=== PATIENT | female | born 1960 | race Caucasian/White ===

== ENCOUNTER 2016-07-11 14:37 | Emergency (ER) | payer BC ==
[2016-07-11 14:55] VITALS: BP 101/62
--- NOTE | 2016-07-11 15:13 | UC ---
Ear Complaint HPI - HPI Summary HPI Summary: Cough, ear pressure, nasal congestion and nasal drainage starting 5-6 days ago. Ear pressure is biggest concern. Denies fever, ear drainage, or trouble breathing. No hx of ENT surgery. - History of Current Complaint Chief Complaint: UCEar Stated Complaint: COUGH,BILATERAL EAR PAIN Time Seen by Provider: 07/11/16 14:56 Hx Obtained From: Patient Hx Last Menstrual Period: NONE ?: No Onset/Duration: Gradual Onset, Lasting Days Severity Initially: Mild Severity Currently: Moderate Associated Signs/Symptoms: Positive: Hearing Loss, URI Symptoms - Allergies/Home Medications Allergies/Adverse Reactions: Allergies Allergy/AdvReac Type Severity Reaction Status Date / Time Penicillins Allergy Rash Verified 07/11/16 14:55 Sulfa Antibiotics Allergy Rash Verified 07/11/16 14:55 Home Medications: Home Medications Acetaminophen-Phenylephrine 2 cap PO ONCE PRN 07/11/16 [History] PMH/Surg Hx/FS Hx/Imm Hx Endocrine History Of: Denies: Diabetes Cardiovascular History Of: Denies: Hypertension, Pacemaker/ICD GI/ History Of: Denies: Renal Disease - Surgical History Surgical History: Yes Surgery Procedure, Year, and Place: LUMPECTOMY - Rt BREAST. APPENDECTOMY - Family History Known Family History: Positive: Hypertension - Social History Alcohol Use: Occasionally Substance Use Type: None Smoking Status (MU): Never Smoked Tobacco Review of Systems Constitutional: Negative Skin: Negative Eyes: Negative ENT: Ear Ache, Nasal Discharge Respiratory: Cough Cardiovascular: Negative Gastrointestinal: Negative Genitourinary: Negative Motor: Negative Neurovascular: Negative Musculoskeletal: Negative Neurological: Negative Psychological: Negative All Other Systems Reviewed And Are Negative: Yes Physical Exam Triage Information Reviewed: Yes Appearance: Well-Appearing, No Pain Distress, Well-Nourished Vital Signs: Initial Vital Signs Temp 98.9 F 07/11/16 14:48 Pulse 79 07/11/16 14:48 Resp 14 07/11/16 14:48 BP 101/62 07/11/16 14:48 Pulse Ox 100 07/11/16 14:48 Vital Signs Reviewed: Yes Eye Exam: Normal Eyes: Positive: Conjunctiva Clear ENT: Positive: Hearing grossly normal, Nasal congestion, Nasal drainage, TMs normal. Negative: Tonsillar swelling, Tonsillar exudate Dental Exam: Normal Neck exam: Normal Neck: Positive: Supple, Nontender, No Lymphadenopathy Respiratory Exam: Normal Respiratory: Positive: Chest non-tender, Lungs clear, Normal breath sounds, No respiratory distress, No accessory muscle use Cardiovascular Exam: Normal Cardiovascular: Positive: RRR, No Murmur Musculoskeletal Exam: Normal Neurological Exam: Normal Psychological Exam: Normal Skin Exam: Normal Ear Complaint Course/Dx - Differential Dx/Diagnosis Provider Diagnoses: URI. bilat ear serous otitis Discharge - Discharge Plan Condition: Stable Disposition: HOME Patient Education Materials: Upper Respiratory Infection (ED), Serous Otitis Media (ED) Referrals: Yadi Somers MD [Primary Care Provider] - If Needed
== END 2016-07-11 15:14 | disposition home or self-care (01) ==
LOC: UCCORT 14:37
DX: J06.9 Acute upper respiratory infection, unspecified (principal); H65.93 Unspecified nonsuppurative otitis media, bilateral; Z88.0 Allergy status to penicillin; Z88.2 Allergy status to sulfonamides
CPT/HCPCS: 99211; G0463

== ENCOUNTER 2017-06-19 06:21 | Day surgery (SDC) | payer BC ==
[~2017-06-19 06:21] MED LIST: Buffered Lidocaine 0.9% SYRIN* 5 ML/SYR SYRINGE INTRADERM ONE; Famotidine IV* 10 MG/ML 2 ML (20 mg) IV ONE
[2017-06-19] MEDS ORDERED: Buffered Lidocaine 0.9% SYRIN* 5 ML/SYR SYRINGE ONE (06:35)
[2017-06-19] MEDS ORDERED: Famotidine IV* 10 MG/ML 2 ML (20 mg) ONE (06:35)
[2017-06-19] MEDS ORDERED: Bupivacaine 0.25% SDV* 30 ML ONE (07:05)
[2017-06-19] MEDS ORDERED: Lidocaine 1% MPF wEPI 200,000* 30 ML SDV ONE (07:06)
[2017-06-19] MEDS ORDERED: Bupivacaine 0.5% SDV PF* 10-30ML VIAL ONE (07:07)
[2017-06-19] MEDS ORDERED: fentaNYL* 50 MCG/ML 2 ML VIAL (100 MCG VIAL) ONE (07:29)
[2017-06-19] MEDS ORDERED: Midazolam* 1 MG/ML 5 ML VIAL (5 MG) ONE (07:29)
[2017-06-19] MEDS ORDERED: Propofol* 10 MG/ML 20 ML BTL IV PUSH ONE ×2 (07:46→07:58)
[2017-06-19] MEDS ORDERED: Lidocaine 2% PF * 5 ML VIAL ONE (07:46)
[2017-06-19] MEDS ORDERED: Ondansetron INJ* 2 MG/ML VIAL ONE (07:46)
[2017-06-19] MEDS ORDERED: Ketorolac INJ* 30 MG/ML 1 ML VIAL ONE (07:46)
[2017-06-19] MEDS ORDERED: Naloxone* 0.4 MG/ML 1 ML VIAL IV PRN (08:07)
[2017-06-19] MEDS ORDERED: Acetaminophen TAB* 325 MG PO PRN (08:07)
[2017-06-19 08:31] VITALS: BP 109/68
--- NOTE | 2017-06-24 04:05 | OP ---
DATE OF OPERATION: 06/19/17 - [facility] DATE OF : 64 SURGEON: Jp Dia MD PIANO MOVER: None. ANESTHESIOLOGIST: Dr. Thomas. ANESTHESIA: Local MAC. PRE-OP DIAGNOSIS: Right carpal tunnel syndrome. POST-OP DIAGNOSIS: Right carpal tunnel syndrome. OPERATIVE PROCEDURE: Right open carpal tunnel release. INDICATIONS: Celia has had progressive disease. We talked about risks and benefits, she wants to proceed with surgery. ESTIMATED BLOOD LOSS: 2 mL. COMPLICATIONS: None. FINDINGS: As expected. DESCRIPTION OF PROCEDURE: Celia was seen in the preoperative holding area. We came back to the operating room. The arm was prepped and draped in the usual fashion. A time-out was performed. The arm was exsanguinated with the Esmarch and the tourniquet was inflated to 250 mmHg. I had anesthetized the hand already with 0.25% plain Marcaine. A 2 to 3 cm incision was made longitudinally in the standard location for an open carpal tunnel release. Dissection was carried down in the subcutaneous tissue and palmar fascia was released. Transverse carpal ligament was released just off the radial aspect of the hook of the hamate. The release was completed distally and proximally. Under direct visualization, the remainder of the transverse carpal ligament and distal antebrachial fascia was released with the tenotomy scissors, retracting the subcutaneous tissue volarly and ulnarly with Jose retractor. The wound was then irrigated out. There was absolutely no compression on the nerve. I checked thoroughly and there was very nice decompression. I then closed the skin with 4-0 nylon suture. Wound was dressed with Xeroform, 4x4, sterile Webril and an Thom bandage. She was taken to the recovery room in stable condition. [id number]/[facility] #: [id number] MTDD
== END 2017-06-19 09:08 | disposition home or self-care (01) ==
LOC: OR 06:21
PROVIDERS: ATTEND Orthopaedic Surgery Hand Surgery
DX: G56.01 Carpal tunnel syndrome, right upper limb (principal); E03.9 Hypothyroidism, unspecified; H02.401 Unspecified ptosis of right eyelid; G40.909 Epilepsy, unspecified, not intractable, without status epilepticus
CPT/HCPCS: J1885; J2001; J2250; J2405; J2704; J3010